=== PATIENT | male | born 1985 | race Caucasian/White ===

== ENCOUNTER 2019-01-22 18:50 | Emergency (ER) | payer OTHER ==
[~2019-01-22] VITALS: Ht 177.8 cm; Wt 81.6 kg
[2019-01-22 19:23] VITALS: BP 130/81
[2019-01-22] MEDS ORDERED: LIDOCAINE WITH 8.4% SOD BICARB 3 ML DISP.SYRIN. INJ ONE (19:30)
[2019-01-22] MEDS ORDERED: LIDOCAINE/EPI/TETRACAINE TOPICAL GEL 3 ML. TP ONE (19:30)
--- NOTE | 2019-01-22 21:04 | PHYS DOC ---
Past Medical History Past Medical History: No Pertinent History Past Surgical History: Tonsillectomy Additional Past Surgical Histo: CYST FROM NECK REMOVED, HERNIA REPAIR X2 REPA IRED Alcohol Use: Rarely Drug Use: None Adult General Chief Complaint Chief Complaint: LACERATION/AVULSION HPI HPI Patient is a 33 year old male who presents with right wyatt laceration he was doing box jumps and got cut. Review of Systems Review of Systems Constitutional: Denies fever or chills [] Musculoskeletal: Denies back pain or joint pain [] Integument: Reports right wyatt laceration Neurologic: Denies headache, focal weakness or sensory changes [] Endocrine: Denies polyuria or polydipsia [] All other systems were reviewed and found to be within normal limits, except as documented in this note. Current Medications Current Medications Current Medications Medications (Trade) Dose Ordered Sig/Walter Start Time Stop Time Status Last Admin Dose Admin Diphtheria/ Tetanus/Acell Pertussis (Boostrix) 0.5 ml ONCE ONCE 01/22/19 21:45 01/22/19 21:46 UNV Lidocaine/ Epinephrine (Let Topical) 3 ml 1X ONCE 01/22/19 19:30 01/22/19 19:34 DC 01/22/19 19:30 3 ML Lidocaine/Sodium Bicarbonate (Buffered Lidocaine 1%) 3 ml 1X ONCE 01/22/19 19:30 01/22/19 19:34 DC 01/22/19 19:30 3 ML Allergies Allergies Allergies Coded Allergies Type Severity Reaction Last Updated Verified codeine Allergy Unknown 01/22/19 Yes Physical Exam Physical Exam Constitutional: Well developed, well nourished, no acute distress, non-toxic appearance. [] Skin: Warm, dry, right wyatt with a vertical laceration approximately 5 cm long. Full range of motion to the right lower extremity. +2 right pedal pulse. Back: No tenderness, no CVA tenderness. [] Extremities: No tenderness, no cyanosis, no clubbing, ROM intact, no edema. [] Neurologic: Alert and oriented X 3, normal motor function, normal sensory function, no focal deficits noted. [] Psychologic: Affect normal, judgement normal, mood normal. [] Current Patient Data Vital Signs Vital Signs Date Time Temp Pulse Resp B/P (MAP) Pulse Ox O2 Delivery O2 Flow Rate FiO2 01/22/19 19:23 98.1 69 14 130/81 (97) 95 Room Air 98.1 EKG EKG [] Radiology/Procedures Radiology/Procedures Laceration/Wound Repair Wound Location: Right wyatt Wound's Depth, Shape: Vertical Wound Length (cm): 5 cm Wound Explored: clean Irrigated w/ Saline (ccs): 500 Betadine Prep?: Yes Anesthesia: Let solution then buffered lidocaine Volume Anesthetic (ccs): 3 mL of let solution into a male of buffered lidocaine Wound Repaired With: Vicryl 3.0 and 4.0 Number of Sutures: 1 internal interrupted suture was done and roughly 12 external interrupted sutures Progress : Wound was covered with nonstick dressing Course & Med Decision Making Course & Med Decision Making Pertinent Labs and Imaging studies reviewed. (See chart for details) This is a 33-year-old male patient who presents to the ED today with right wyatt laceration. Laceration was closed by me as noted in procedures. Wound care instructions and return precautions provided. Tetanus updated. Dragon Disclaimer Dragon Disclaimer This electronic medical record was generated, in whole or in part, using a voice recognition dictation system. Departure Departure Impression: Primary Impression: Laceration of right lower extremity Disposition: 01 HOME, SELF-CARE Condition: STABLE Referrals: NO PCP (PCP) Follow up with your doctor in 1-2 weeks Patient Instructions: Laceration Care, Adult Additional Instructions: You have a laceration on the right wyatt that was closed with dissolvable stitches, they will fall off and disappear on their own, keep the area clean and dry. You can shower and wash the area, do not soak it. Apply Neosporin to the area twice a day. Monitor the area for signs of infection including but not limited to increased redness, warmth, yellow drainage from the area and return to the ED see her doctor if they occur. Problem Qualifiers Primary Impression: Laceration of right lower extremity Encounter type: initial encounter Qualified Codes: S81.811A - Laceration without foreign body, right lower leg, initial encounter VIVIEN HICKMAN APRN Jan 22, 2019 21:04
[2019-01-22] MEDS ORDERED: DIPHTH,PERTUSS(ACELL),TET TOX 0.5 ML DISP.SYRIN. VAX IM ONE (22:00)
== END 2019-01-22 21:46 | disposition home or self-care (01) ==
LOC: ER 18:50
DX: S81.811A Laceration without foreign body, right lower leg, initial encounter (principal); Z90.89 Acquired absence of other organs; Z88.5 Allergy status to narcotic agent; W26.8XXA Contact with other sharp object(s), not elsewhere classified, initial encounter; Y93.89 Activity, other specified; Y92.89 Other specified places as the place of occurrence of the external cause; Y99.8 Other external cause status
CPT/HCPCS: 12002; 90471; 90715; 99283